=== PATIENT | female | born 1980 | race Caucasian/White ===

== ENCOUNTER 2021-08-05 15:01 | Emergency (ER) | payer SELFPAY ==
[~2021-08-05] VITALS: Ht 152.4 cm; Wt 75.0 kg
[2021-08-05] MEDS ORDERED: IBUPROFEN 800MG TABLET PO ONE (15:45)
[2021-08-05] MEDS ORDERED: IBUP-2030 MT (16:35)
[2021-08-05 17:04] VITALS: BP 141/67
== END 2021-08-05 17:02 | disposition home or self-care (01) ==
LOC: ER 15:01
DX: S83.8X2A Sprain of other specified parts of left knee, initial encounter (principal); W50.2XXA Accidental twist by another person, initial encounter; Y93.89 Activity, other specified; Y92.89 Other specified places as the place of occurrence of the external cause; Y99.8 Other external cause status; Z98.890 Other specified postprocedural states
CPT/HCPCS: 73564; 99283; Z7610